=== PATIENT | male | born 2000 | race Caucasian/White ===

== ENCOUNTER 2022-09-26 08:52 | Day surgery (SDC) | payer OTHER, SELFPAY ==
[2022-09-25 12:02] VITALS: BMI 23.7
[2022-09-26] VITALS (13 sets, daily range): BP systolic 127–192; BP diastolic 54–106; PULSE 58–82; RESP 16–20; TEMP 36.2–36.7; O2SAT 97–100
--- NOTE | 2022-09-26 09:06 | W.PM.OPSUD ---
Surgery/Procedure H&P Update DATE OF PROCEDURE: September 26, 2022 DATE H&P PERFORMED: 09/10/22 H&P UPDATE INFORMATION: I have reviewed H&P completed within last 30 days, I have examined patient prior to procedure and No changes to prior documentation PLANNED PROCEDURE: Operation Date: 09/26/22 10:35 [place] Procedures [place] 87913 lap ventral and umbilical hernia repair with mesh,K43.9 , K42.9(Not Applicable) - DO wang Dotson Laparoscopic Umbilical Hernia Repair(Not Applicable) - Vito Lopez DO
[2022-09-26] MEDS: sodium chloride 0.9% 1,000 ML 30 ML IV (09:34)
[2022-09-26] MEDS: ceFAZolin 2,000 MG in sodium chloride 0.9% (plus) 50 ML 100 MG IV (09:48)
[2022-09-26] MEDS: lidocaine-epi 2% 20 mL INJ INJECTION (10:10)
--- NOTE | 2022-09-26 10:17 | ANES.PREANE2 ---
Pre-Anesthetic Assessment Height/Weight: Height 1.85 m Weight 81.647 kg Temp Pulse Resp BP Pulse Ox O2 Del Method 98.0 F 69 18 131/79 100 Room Air 09/26/22 09:11 09/26/22 09:11 09/26/22 09:11 09/26/22 09:11 09/26/22 09:11 09/26/22 09:15 Operation Date: 09/26/22 10:35 Proposed Procedures p 46519 lap ventral and umbilical hernia repair with mesh,K43.9 , K42.9(Not Applicable) - Vito Lopez DO s Laparoscopic Umbilical Hernia Repair(Not Applicable) - Vito Lopez DO Familial anesthetic complications: none Was Beta Pasquale taken within 24 hours: N/A Was Clonidine taken within 24 hours: N/A Last intake: Intake Last Liquid Date 09/25/22 Last Liquid Time 22:00 Last Solid Date 09/25/22 Last Solid Time 20:00 Social Tobacco and No alcohol Exam alert, oriented x 3, clear to auscultation bilaterally and regular rate & rhythm Airway Submandibular: within normal limits Cervical ROM: within normal limits Mallampati: Class II Dentition: full History/ROS No significant history except as noted Anesthetic Plan ASA status: 1 Anesthesia: General and Regional (specify below) (Discussed bilateral TAP blks) Medications/Allergies Home Medications Medication Instructions Recorded Confirmed Last Taken Type No Known Home Medications 09/03/22 09/25/22 Unknown History Allergies Allergy/AdvReac Type Severity Reaction Status Date / Time No Known Allergies Allergy Verified 09/10/22 16:17 Current Medications Generic Name Dose Route Start Last Admin Trade Name Freq PRN Reason Stop Dose Admin Sodium Chloride 1,000 mls @ 30 mls/hr 09/26/22 09:00 09/26/22 09:34 Sodium Chloride 0.9% IV 09/27/22 08:59 30 mls/hr .Q24H BARRY Administration PFSH Anesthesia Medical History No pertinent past medical history Surgical History No pertinent past surgical history Family History Denies family history of Diabetes CAD (coronary artery disease) Chronic kidney disease (CKD) Suicide Lung disease Cancer Hypertension Stroke Social History Smoking and tobacco status: never smoked Alcohol intake: current Alcohol intake frequency: few times a week Alcohol type: beer Substance/Drug Use: never Adopted: No Caregiver/support person: No Lives independently: Yes service: No Current occupational status: employed Sexually active: Yes Do you think of yourself as: Straight/Heterosexual Current gender identity: Male Data Anesthesia Cardiac Studies: No Data to Display
--- NOTE | 2022-09-26 10:45 | PM.OP ---
Operative Report Date of procedure: September 26, 2022 Pre-op diagnosis: Umbilical and ventral hernias Post-op diagnosis: same Procedure done: Laparoscopic repair of ventral and umbilical hernias with mesh Implants: 6 inch round Ventralight mesh Specimens removed/disposition: Hernia sac Surgeon: Dr. Vito Lopez DO Anesthesia: General Estimated blood loss (mL): 5 Complications: None apparent Brief History: This is a very pleasant 22-year-old gentleman with a ventral and umbilical hernia. Laparoscopic repairs with mesh was indicated. The risks and benefits were explained and documented. Procedure: Patient was wheeled into the operative room and placed on the OR table in a supine position. Abdomen was inspected prepped and draped in usual sterile fashion. Time-out was performed and all present were in agreement. A 15 blade scalp was used to make a 5 millimeter incision left upper quadrant. A Veress needle was placed into the incision and intra-abdominal insufflation was brought to 15 millimeters of mercury. A 12 millimeter trocar was placed into the left lower quadrant. There was a small umbilical hernia and a small ventral hernia just cephalad to this. Both hernias measured 3 cm in total diameter together. The energy device was then used to cut out the hernia sacs. A 6 inch ventral light mesh was placed into the abdomen and brought up through the center of the 2 hernias using an the Javier-Rand. The mesh was then tacked in place in a double crown fashion. The skeleton of the mesh was removed via the left lower quadrant. The hernia sac was then removed from the abdomen via the left lower quadrant. The left lower quadrant port site was closed with an 0 Vicryl suture in a Javier-Rand in a [id number] fashion. Incisions were closed with 4 O Vicryl in a subcuticular interrupted fashion. Skin glue was applied. Patient tolerated the procedure well.
[2022-09-26] MEDS: fentaNYL 50 mcg/mL INJ 2mL IVP (11:04)
[2022-09-26] MEDS: metoprolol tartrate 1 mg/1 mL SDV 5 mL 5 MG (11:10)
--- NOTE | 2022-09-26 13:09 | ANES.PROC ---
Anesthesia Procedures Procedure/Date: 09/26/22 Nerve Block ^: Nerve Block 1: Main Anesthesia: general anesthesia Time Out Performed: Yes Consent: from patient, risks and benefits reviewed and patient agrees to proceed Nerve block location: other (Bilateral TAP blks) Anesthesia monitors applied: pulse oximetry, EKG, BP cuff and oxygen Nerve block position: supine Anesthetic Used: ropivicaine 0.5% Amount of anesthesia used (mL): 30 Ultrasound used to: recognize landmarks Nerve Stimulator Used?: No Interscalene/Femoral BLK: 4 stimuplex 21 g needle used for position and inplane approach Injection: neg aspiration of heme Patient Tolerated Procedure: well Complications: none
--- NOTE | 2022-09-26 16:14 | ANE.PACU2 ---
Inpatient post-anesthesia follow up: Airway intact: Yes Vital signs: Temperature 97.6 F Pulse Rate 58 Respiratory Rate 17 Blood Pressure 128/80 Pulse Oximetry 100 Oxygen Delivery Me thod Room Air Oxygen Flow Rate 6 Fraction of Inspir ed Oxygen Hydration adequate: Yes Nausea and vomiting: No Pain level: 4 Mental status: Baseline
== END 2022-09-26 12:12 | disposition home or self-care (01) ==
PROVIDERS: PCP Registered Nurse; Visit Provider Surgery
PROC: 0WQF4ZZ Repair Abdominal Wall, Percutaneous Endoscopic Approach (ICD-10-PCS; CPT 49591; principal; 2022-09-26 10:25)
PROC: 0WQF4ZZ Repair Abdominal Wall, Percutaneous Endoscopic Approach (ICD-10-PCS; CPT 49591; 2022-09-26 10:25)
DX: K43.9 Ventral hernia without obstruction or gangrene (principal); K42.9 Umbilical hernia without obstruction or gangrene
CPT/HCPCS: 49591; 88302; J0690; J2250; J2704; J2795; J3010; J3490; J7030

== ENCOUNTER → 2025-05-16 14:23 | Outpatient (BNVA) | payer OTHER, SELFPAY | PROVIDERS: PCP Registered Nurse; Visit Provider Specialist | DX: S43.101A Unspecified dislocation of right acromioclavicular joint, initial encounter (principal); W19.XXXA Unspecified fall, initial encounter | CPT/HCPCS: 73030 ==